=== PATIENT | female | born 1995 ===

== ENCOUNTER 2017-08-24 02:14 | Inpatient (IN) | payer MEDICAID ==
[2017-08-24] VITALS (54 sets, daily range): BP systolic 103–157; BP diastolic 51–82; PULSE 42–69; RESP 14–22; TEMP 97.5–98.8; O2SAT 97–100
[~2017-08-24] VITALS: Ht 157.5 cm; Wt 75.0 kg
[2017-08-24] MEDS ORDERED: PREN1TAB45 PO (02:36)
[2017-08-24] MEDS ORDERED: METH10TA PO (02:36)
[2017-08-24] MEDS ORDERED: fentaNYL 2MCG-BUPIV 0.125% INJ 150 ML EPIDURAL ONE (02:46)
[2017-08-24] MEDS ORDERED: BUPIVACAINE HCL PF 0.25% 10 ML VIAL ONE (02:47)
[2017-08-24 02:48] LABS: AUTOMATED NEUTROPHIL # 4.9 TH/MM3 (1.8-7.7); BASOPHIL # 0.1 TH/MM3 (0-0.2); BASOPHIL % 0.6 % (0.0-2.0); EOSINOPHIL # 0.1 TH/MM3 (0-0.4); EOSINOPHIL % 1.6 % (0.0-4.0); HEMATOCRIT 36.1 % (35.0-46.0); HEMOGLOBIN 12.5 GM/DL (11.6-15.3); LYMPH % 31.8 % (9.0-44.0); LYMPHOCYTE # 2.8 TH/MM3 (1.0-4.8); MEAN CORPUSCULAR HGB CONC 34.5 % (32.0-36.0); MEAN PLATELET VOLUME 8.3 FL (7.0-11.0); MONO % 10.1 % (0.0-8.0); MONOCYTE # 0.9 TH/MM3 (0-0.9); NEUT % 55.9 % (16.0-70.0); PLATELET COUNT 257 TH/MM3 (150-450); RED BLOOD COUNT 4.02 MIL/MM3 (4.00-5.30); RED CELL DISTRIBUTION WIDTH 14.1 % (11.6-17.2); WHITE BLOOD COUNT 8.7 TH/MM3 (4.0-11.0)
[2017-08-24] MEDS ORDERED: LIDOCAINE HCL 1% PF 30 ML VIAL ONE (02:49)
[2017-08-24] MEDS ORDERED: OXYTOCIN 30 UNITS-500ML PREMIX 500 ML ONE (02:49)
[2017-08-24] MEDS ORDERED: LIDOCAINE HCL 1% 50 ML VIAL INFIL PRN (03:00)
[2017-08-24] MEDS ORDERED: NS 1000 ML IV PRN (03:00)
[2017-08-24] MEDS ORDERED: MINERAL OIL 10 ML VIAL TOPICAL PRN (03:00)
[2017-08-24] MEDS ORDERED: LACTATED RINGER'S 1000 ML BOLUS IV PRN (03:00)
[2017-08-24] MEDS ORDERED: CITRIC ACID-SODIUM CITRATE LIQ 30 ML UDC PO SCH (03:00)
[2017-08-24] MEDS ORDERED: ONDANSETRON HCL 4 MG/2 ML VIAL IV PUSH PRN (03:00)
[2017-08-24] MEDS ORDERED: OXYTOCIN 30 UNITS 500ML PREMIX IV ONE (03:00)
[2017-08-24] MEDS ORDERED: LIDOCAINE HCL 1% 50 ML VIAL I-DERMAL PRN (03:00)
[2017-08-24] MEDS ORDERED: LACTATED RINGER'S 1000 ML IV SCH (03:00)
[2017-08-24] MEDS ORDERED: NS 500 ML BOLUS IV PRN (03:00)
--- NOTE | 2017-08-24 03:47 | HHI.HP ---
History & Physical H&P HPI Chief Complaint Contractions Date Seen: Aug 24, 2017 Travel History International Travel<30 Days: No Contact w/Intl Traveler<30Days: No Known Affected Area: No History of Present Illness HPI The patient is a 22 year old at 40/5 weeks presents to OB ED due to contractions beginning around midnight earlier tonight. She reports her contractions as fairly regular. Denies leakage of fluid. Denies vaginal bleeding. Endorses + movements. She otherwise does not report complaints or concerns. She is currently receiving methadone therapy, she has a history of IV heroin use as well as hepatitic C. care with Jazmine Carrasco. She is GBS negative. Para: 2 : 3 History Past Medical History Narrative Medical Hepatitis C History of IV heroin use Obstetric History Obstetric History Two prior vaginal deliveries, both about 6 pounds Past Surgical History Surgical History: No Previous Surgery Family History Family History: Negative Social History Alcohol Use: No Tobacco Use: Yes (Admits to cigarette smoking, about 3-10 cigarettes daily throughout ) Substance Abuse: No (None during ) Allergies-Medications (Allergen,Severity, Reaction): Coded Allergies: No Known Allergies (Verified Allergy, Unknown, 08/24/17) Home Meds Reported Medications Methadone (Methadone) 10 Mg Tab, 50 MG PO DAILY, TAB 0 Refills 08/24/17 Vit,Calc76/Iron/Folic (Pnv 29-1 Tablet) 29 Mg Iron-1 Mg Tablet, 1 TAB PO DAILY 08/24/17 Review of Systems Except as stated in HPI: all other systems reviewed are Neg Physical Exam Vital Signs Date Time Temp Pulse Resp B/P (MAP) Pulse Ox O2 Delivery O2 Flow Rate FiO2 08/24/17 02:30 22 08/24/17 02:29 61 145/73 (97) Narrative GENERAL: Well-nourished, well-developed patient. SKIN: Warm and dry. HEAD: Normocephalic and atraumatic. EYES: No scleral icterus. No injection or drainage. ENT: No nasal drainage noted. Mucous membranes pink. Airway patent. NECK: Supple, trachea midline. No JVD. CARDIOVASCULAR: Regular rate and rhythm without murmurs, gallops, or rubs. RESPIRATORY: Breath sounds equal bilaterally. No accessory muscle use. BREASTS: Bilateral exam showed no masses , no retractions, no nipple discharge. ABDOMEN/GI: Abdomen soft, non-tender, bowel sounds present, no rebound, no guarding Gravid to 40 weeks size GENITOURINARY: External Genitalia: intact and normal in appearance Cervix: [-] Dilatation: 4-5 Effacement: 80% Station: -2 Presentation: vertex Membranes: intact Uterine Contractions: q2-5 minutes on tocometer FHT's: Category: I Baseline: 130s Reactive: +accels Variability: moderate Decels: early decel noted EXTREMITIES: No cyanosis or edema. BACK: Nontender without obvious deformity. No CVA tenderness. NEUROLOGICAL: Awake and alert. Motor and sensory grossly within normal limits. Normal speech. Data Data Vital Signs Reviewed: Yes Orders Orders Ob (2e) Additional Admit Info (08/24/17 02:28) Admit To Inpatient (08/24/17 ) Code Status (08/24/17 02:33) Vital Signs (Adult) .Per protocol (08/24/17 02:33) Activity Oob Ad Radha (08/24/17 02:33) Heart (08/24/17 02:33) Amnioinfusion (08/24/17 02:33) Urinary Catheter Management .ONCE (08/24/17 02:33) Complete Blood Count With Diff (08/24/17 02:33) Hold Clot (08/24/17 02:33) Abo/Rh Blood Type (08/24/17 02:33) Urinalysis - C+S If Indicated (08/24/17 02:33) Ob/Psych Drug Screen, Urine (08/24/17 02:33) Resp Oxygen Non Rebreathe Mask (08/24/17 ) ^ Epidural / Intrathecal Infus (08/24/17 02:33) Group B Strep: Negative Labs Laboratory Tests Test 08/24/17 02:30 [facility] Medical Record Reviewed: Yes Plan 22 year old at 40/5 weeks gestation being admitted to L&D. - Cervix: 4-5/80/-2, bulging membranes - Category I tracing - Contractions q2-5 minutes - Patient desiring epidural - GBS negative - Obtain extended OB/psych urine tox, pt with h/o heroin use reportedly none during - Anticipate AROM after epidural placement - Continue expectant management dw Gregory Boateng MD R2 Aug 24, 2017 03:46
[2017-08-24] MEDS ORDERED: NO SYSTEM NARCOTICS PRN (04:00)
[2017-08-24] MEDS ORDERED: fentaNYL 2MCG-BUPIV 0.125% 150 ML EPIDURAL PRN (04:00)
[2017-08-24] MEDS ORDERED: DO NOT ADMINISTER ANTICOAGULANTS PRN (04:00)
[2017-08-24] MEDS ORDERED: ePHEDrine/NS 25 MG/5 ML SYRINGE IV PUSH PRN (04:00)
[2017-08-24 04:04] LABS: BACTERIA, URINE RARE /hpf; BILIRUBIN, URINE NEG (NEG); BLOOD, URINE MOD (NEG); CALCIUM OXALATE CRYSTALS,URINE OCC /hpf; GLUCOSE,URINE NEG (NEG); KETONE, URINE NEG (NEG); MUCUS URINE FEW /lpf (OCC); NITRITE,URINE NEG (NEG); RENAL EPITHELIAL CELLS <1 /hpf; SQUAMOUS EPITHELIAL CELL URINE 2 /hpf (0-5); URINE COLOR YELLOW (YELLW/STRAW); URINE LEUKOCYTE ESTERASE NEG (NEG)
--- NOTE | 2017-08-24 04:18 | PD.LABORPN ---
Subjective Subjective Patient resting comfortably in bed. Epidural in place. Discussed AROM with patient who expressed understanding and agreed to plan. Objective Vital Signs Vital Signs Date Time Temp Pulse Resp B/P (MAP) Pulse Ox O2 Delivery O2 Flow Rate FiO2 08/24/17 03:50 47 62018 03:50 46 100 618 03:46 47 113/71 (85) 08/24/17 03:45 48 620 03:45 48 100 08/24/17 03:41 49 116/61 (79) 08/24/17 03:40 46 08/24/17 03:40 50 97 20 03:36 55 126/79 (95) 08/24/17 03:35 48 08/24/17 03:35 48 08/24/17 03:35 100 08/24/17 03:31 46 133/72 (92) 08/24/17 03:30 49 20 03:30 97.5 08/24/17 03:30 48 08/24/17 03:30 20 100 08/24/17 03:26 53 124/61 (82) 08/24/17 03:25 100 2018 03:25 48 62018 03:25 49 62018 03:21 48 129/63 (85) 08/24/17 03:20 48 20/18 03:20 99 20/18 03:20 49 620/18 03:16 48 126/51 (76) 08/24/17 03:15 50 20 03:15 97 2018 03:15 49 2018 03:11 61 112/52 (72) 18 03:10 49 620/18 03:10 50 620/18 03:10 100 20/18 03:06 50 132/72 (92) 08/24/17 03:05 54 2018 03:05 54 2018 03:05 100 18 03:01 57 157/82 (107) 08/24/17 03:00 54 20/18 03:00 54 20 03:00 22 08/24/17 03:00 100 08/24/17 02:56 53 136/64 (88) 6/20/18 02:55 53 08/24/17 02:50 55 08/24/17 02:45 50 08/24/17 02:30 22 08/24/17 02:29 61 145/73 (97) Objective Pelvic Exam (performed by Dr. Armenta with female sweatband drummer RN present in exam room): Cervix: midposition Dilatation: 9 Effacement: 90% Station: 0 Presentation: vertex Membranes: ruptured Uterine Contractions: q2-3 minutes FHT's: Category: I Baseline: 120 bpm Reactive: +accels Variability: moderate Decels: intermittent variables noted Assessment/Plan Assessment and Plan 22 year old at 40/5 weeks gestation admitted to L&D. - Cervix: 9/90/0, s/p AROM with clear fluid - Category I tracing - Contractions q2-3 minutes - Epidural in place - GBS negative - Obtain extended OB/psych urine tox, pt with h/o heroin use reportedly none during - Continue expectant management Gregory Contreras MD R2 Aug 24, 2017 04:18
--- NOTE | 2017-08-24 05:12 | PD.OB.DELI ---
Weeks gestation: 40 Artificial rupture of membrane: Yes Artificial ROM date: Aug 24, 2017 Anesthesia: Epidural Episiotomy: None Vaginal Delivery: Normal, Spontaneous Presentation: Occiput anterior Nuchal Cord: None Delayed cord clamping (45 sec): Yes Infant: Female Delivery date: Aug 24, 2017 Delivery time: 04:53 One Minute : 9 Five Minute : 9 Weight: 3465 grams Placenta: Spontaneous delivery, Intact Laceration: Perineal laceration, 1 deg Repair: Chromic interrupted Estimated blood loss: < 200 cc Additional Information 22 year old now delivered via over an intact perineum. Placenta delivered spontaneously and intact. 1st degree perineal laceration repaired using 2.0 chromic two interrupted sutures. EBL < 200 cc. Gregory Contreras MD R2 Aug 24, 2017 05:12
[2017-08-24] MEDS ORDERED: ACETAMINOPHEN 325 MG TAB PO PRN (05:15)
[2017-08-24] MEDS ORDERED: ALUMINUM/MAGNESIUM/SIMETH 30 ML CUP PO PRN (05:15)
[2017-08-24] MEDS ORDERED: SODIUM CHLORIDE 0.9% FLUSH 10 ML FLUSH IV FLUSH PRN (05:15)
[2017-08-24] MEDS ORDERED: BENZOCAINE 20% TOPICAL SPRAY 60 ML CAN TOPICAL PRN (05:15)
[2017-08-24] MEDS ORDERED: ZOLPIDEM TARTRATE 5 MG TAB PO PRN (05:15)
[2017-08-24] MEDS ORDERED: WITCH HAZEL 50%/GLYCERIN 12.5% 40 PAD JAR TOPICAL PRN (05:15)
[2017-08-24] MEDS ORDERED: IBUPROFEN 800 MG TAB PO PRN (05:15)
[2017-08-24] MEDS ORDERED: DOCUSATE SODIUM 50 MG/SENNA 8.6 MG TAB PO PRN (05:15)
[2017-08-24] MEDS ORDERED: ONDANSETRON ODT 4 MG TAB PO PRN (05:15)
[2017-08-24] MEDS ORDERED: OXYTOCIN 30 UNITS-500ML PREMIX 500 ML IV SCH (05:15)
[2017-08-24] MEDS ORDERED: METHADONE HCL 10 MG TAB PO SCH ×2 (08:30→09:00)
[2017-08-24] MEDS ORDERED: SODIUM CHLORIDE 0.9% FLUSH 10 ML FLUSH IV FLUSH SCH (09:00)
[2017-08-24] MEDS: METHADONE HCL 10 MG/10 ML ORAL SOLUTION PO SCH (09:01)
[2017-08-24] MEDS ORDERED: MEASLES, MUMPS, RUBELLA VACCINE 0.5 ML VIAL SQ ONE (16:00)
[2017-08-24] MEDS ORDERED: DIPHTH/TETANUS/ACEL PERTUSSIS (BOOSTER) 0.5 ML VIAL/PFS IM ONE (16:00)
[2017-08-25] MEDS ORDERED: IBUP1TAB7 PO (07:06)
--- NOTE | 2017-08-25 07:06 | HHI.DCPOC ---
Discharge Care Plan Diagnosis: (1) Vaginal delivery Report Symptoms to Your Doctor -Temperature above 100.5 degrees -Redness, of incision or excessive or foul smelling drainage -Unusual pain or calf pain -Increased vaginal bleeding -Painful or difficulty urinating -Feelings of extreme sadness or anxiety after 2 weeks Goals to Promote Your Health * To prevent worsening of your condition and complications * To maintain your health at the optimal level Directions to Meet Your Goals Take your medications as prescribed Follow your dietary instruction Follow activity as directed Ensure plenty of rest for recovery Drink fluids for hydration Keep your appointments as scheduled Take your immunizations and boosters as scheduled If your symptoms worsen call your PCP, if no PCP go to Urgent Care Center or Emergency Room Smoking is Dangerous to Your Health. Avoid second hand smoke Call the 24-hour crisis hotline for domestic abuse at Gerard Alanis MD R1 Aug 25, 2017 07:06
--- NOTE | 2017-08-25 07:42 | HHI.OB ---
Subjective Post Day: 1 Remarks day # 1. AFVSS overnight. Pain well-controlled. Lochia < a period. Denies dysuria. Appetite good. No nausea or vomiting overnight. Patient had multiple bouts of vomiting before and after delivery yesterday that improved after receiving Zofran. She is doing much better now and is able to eat white bread, crackers and a sorbet. Her mom will bring breakfast for her to try this morning. Positive flatus. Positive bowel movement. Ambulating well. Denies calf pain, shortness of breath, or chest pain. Otherwise, she is doing well this morning and has no other complaints. She would like to be discharged from the hospital today. Objective Vitals/I&O Vital Signs Date Time Temp Pulse Resp B/P (MAP) Pulse Ox O2 Delivery O2 Flow Rate FiO2 08/24/17 20:00 55 18 132/76 (94) 08/24/17 20:00 98.0 Objective Remarks GENERAL: Well-nourished, well-developed patient. CARDIOVASCULAR: Regular rate and rhythm without murmurs, gallops, or rubs. RESPIRATORY: Breath sounds equal bilaterally. No accessory muscle use. ABDOMEN/GI: Abdomen soft, non-tender. Fundus: Firm, non-tender below umbilicus. GENITOURINARY: Light to moderate bleeding. EXTREMITIES: No cyanosis or edema, non-tender, without signs of DVT. Medications and IVs Current Medications Medications (Trade) Dose Ordered Sig/Renuka Route Start Time Stop Time Status Last Admin (NS Flush) 2 ml BID IV FLUSH 08/24/17 09:00 (NS Flush) 2 ml UNSCH PRN IV FLUSH 08/24/17 05:15 (Tylenol) 650 mg Q4H PRN PO 08/24/17 05:15 (Motrin) 800 mg Q8H PRN PO 08/24/17 05:15 (Americaine 20% Top Spr) 1 spray Q4H PRN TOPICAL 08/24/17 05:15 08/24/17 10:50 (Tucks Pads) 1 applic QID PRN TOPICAL 08/24/17 05:15 08/24/17 10:51 (Patricia-Colace) 2 tab Q12H PRN PO 08/24/17 05:15 (Ambien) 5 mg HS PRN PO 08/24/17 05:15 (Mag-Al Plus Susp Liq) 15 ml Q8H PRN PO 08/24/17 05:15 (Zofran Odt) 4 mg Q6H PRN PO 08/24/17 05:15 08/24/17 10:50 (Methadone Liq) 50 mg DAILY PO 08/24/17 09:00 08/24/17 09:01 Assessment/Plan Problem List: (1) Vaginal delivery ICD Codes: O80 - Encounter for full-term uncomplicated delivery (2) Methadone maintenance therapy patient ICD Codes: F11.20 - Opioid dependence, uncomplicated Assessment and Plan 22 y/o female who is PPD#1 s/p -Continue routine care -Motrin and Percocet PRN for pain -Pericolase PRN for constipation -Encouraged OOB. Advised pelvic rest for 6 wks -Will need a follow-up appointment within 6 wks for post- check -History of IV heroin use and hepatitis C: Continue methadone 50 mg p.o. daily. Patient to follow-up with methadone clinic for continued treatment. Discussed with Dr. Armas Discharge Planning Patient is giving baby up for adoption. Adoption agency reps coming to the hospital this morning to sign papers. Patient will be discharged from the hospital today after signing papers. Yana De Luna MD R2 Aug 25, 2017 7:42 am
[2017-08-25 07:53] VITALS: BP 141/85; PULSE 50; RESP 20; TEMP 98.7; O2SAT 99
[2017-08-25 08:11] VITALS: BP 158/89; PULSE 47; RESP 20; TEMP 99; O2SAT 99
[2017-08-25] MEDS: METHADONE HCL 10 MG/10 ML ORAL SOLUTION PO SCH (09:40)
== END 2017-08-25 10:00 | disposition home or self-care (01) | DRG 775 ==
LOC: HOBED 02:14 → H2EB 02:31 → H1EA 09:07
PROVIDERS: ADMIT Obstetrics & Gynecology Maternal & Fetal Medicine; ATTEND Obstetrics & Gynecology Maternal & Fetal Medicine
PROC: 10907ZC Drainage of Amniotic Fluid, Therapeutic from Products of Conception, Via Natural or Artificial Opening (ICD-10-PCS; principal; 2017-08-24)
PROC: 10E0XZZ Delivery of Products of Conception, External Approach (ICD-10-PCS; 2017-08-24)
PROC: 0HQ9XZZ Repair Perineum Skin, External Approach (ICD-10-PCS; 2017-08-24)
DX: O76 Abnormality in fetal heart rate and rhythm complicating labor and delivery (principal); F11.20 Opioid dependence, uncomplicated; O99.324 Drug use complicating childbirth; O99.334 Smoking (tobacco) complicating childbirth; O70.0 First degree perineal laceration during delivery; F17.210 Nicotine dependence, cigarettes, uncomplicated; Z37.0 Single live birth; Z3A.40 40 weeks gestation of pregnancy
CPT/HCPCS: 80307; 81001; 85025; 85461; 86850; 86900; 86901; 90384; G0481; J2590; J2790; J3010; J7120